=== PATIENT | female | born 1945 | race Caucasian/White ===

== ENCOUNTER 2017-02-09 08:30 | Outpatient (CLI) ==
--- NOTE | 2017-02-09 10:57 | MAMMO ---
EXAM: Bilateral digital screening mammogram (2-D and 3-D) History: Screening Comparison: Bilateral mammogram 02/07/2016 Findings: MLO and CC views of bilateral breasts demonstrate predominately fatty replaced breast pare nchyma. CAD was reviewed by the radiologist. Tomosynthesis was performed. Stable benign bilateral breast calcifications. There are no dominant masses, no suspicious microcalcifications and no nurys ectural distortions Impression: Benign stable mammogram. Recommend followup routine screening mammography in 1 year. BIRADS 2
== END 2017-02-09 08:31 | disposition home or self-care (01) ==
LOC: RAD 08:30
PROVIDERS: ATTEND Family Medicine
DX: Z12.31 Encounter for screening mammogram for malignant neoplasm of breast (principal)
CPT/HCPCS: 77067

== ENCOUNTER 2017-11-07 06:22 | Day surgery (SDC) ==
[2017-11-07] MEDS: TETRACAINE 0.5% UNIT-DOSE OP PRN ×2 (06:35→07:15)
[2017-11-07] MEDS: BETADINE OPTH PREP OP PRN ×2 (06:35→07:15)
[2017-11-07] MEDS: CYCLOGYL 2% OPTH OP PRN ×3 (06:36→06:46)
[2017-11-07 06:59] VITALS: TEMP 97.8
[2017-11-07] MEDS ORDERED: DEX-MOXI-KETOR OPTH INJ 1/0.5/0.4 MG/ML IO ONE (07:07)
[2017-11-07] MEDS ORDERED: LIDOCAINE 1% 20 ML MDV ID STA (07:07)
[2017-11-07] MEDS ORDERED: BRIMONIDINE TARTRATE 0.2% OPTH SOL OP PRN (07:07)
[2017-11-07] MEDS ORDERED: BSS WITH EPINEPHRINE OP ONE (07:07)
[2017-11-07] MEDS ORDERED: ZOFRAN 4 MG/2 ML IVP ONE (07:07)
[2017-11-07] MEDS ORDERED: LIDOCAINE 1%/PHENYLEPHRINE 1.5% BSS (SURGERY) INTRAOCULA ONE (07:07)
[2017-11-07] MEDS ORDERED: SUBLIMAZE ONE (07:34)
[2017-11-07] MEDS ORDERED: VERSED ONE (07:34)
[2017-11-07 13:05] VITALS: BP 122/67
== END 2017-11-07 08:35 | disposition home or self-care (01) ==
LOC: SURG 06:22
PROVIDERS: ATTEND Ophthalmology
DX: H25.12 Age-related nuclear cataract, left eye (principal)

== ENCOUNTER 2017-11-21 08:08 | Day surgery (SDC) ==
[2017-11-21] MEDS: BETADINE OPTH PREP OP PRN ×2 (08:40→09:12)
[2017-11-21] MEDS: TETRACAINE 0.5% UNIT-DOSE OP PRN ×2 (08:40→09:12)
[2017-11-21] MEDS: CYCLOGYL 2% OPTH OP PRN ×2 (08:41→08:46)
[2017-11-21] MEDS ORDERED: LIDOCAINE 1% 20 ML MDV ID STA (08:50)
[2017-11-21] MEDS ORDERED: BSS WITH EPINEPHRINE OP ONE (08:50)
[2017-11-21] MEDS ORDERED: ZOFRAN 4 MG/2 ML IVP ONE (08:50)
[2017-11-21] MEDS ORDERED: BRIMONIDINE TARTRATE 0.2% OPTH SOL OP PRN (08:50)
[2017-11-21] MEDS ORDERED: DEX-MOXI-KETOR OPTH INJ 1/0.5/0.4 MG/ML IO ONE (08:50)
[2017-11-21] MEDS ORDERED: LIDOCAINE 1%/PHENYLEPHRINE 1.5% BSS (SURGERY) INTRAOCULA ONE (08:50)
[2017-11-21] MEDS ORDERED: AK-DILATE 10% OPTH SOL OP PRN (08:56)
[2017-11-21] MEDS ORDERED: SUBLIMAZE ONE (09:29)
[2017-11-21] MEDS ORDERED: VERSED ONE (09:29)
[2017-11-21] MEDS ORDERED: ZOFRAN 4 MG/2 ML ONE (09:29)
[2017-11-22 12:37] VITALS: BP 129/67
[2017-11-22 13:25] VITALS: TEMP 98.6
== END 2017-11-21 10:20 | disposition home or self-care (01) ==
LOC: SURG 08:08
PROVIDERS: ATTEND Ophthalmology
DX: H25.11 Age-related nuclear cataract, right eye (principal)